=== PATIENT | male | born 1940 | race Caucasian/White ===

== ENCOUNTER 2020-08-15 11:08 | Outpatient (CLI) | payer MEDICARE, OTHER ==
[2020-08-15] MEDS ORDERED: GLUC1CAP40 PO (11:50)
[2020-08-15] MEDS ORDERED: ATOR20TA37 PO (11:50)
[2020-08-15] MEDS ORDERED: magnesium PO (11:50)
[2020-08-15] MEDS ORDERED: APIX5TAB PO (11:50)
[2020-08-15] MEDS ORDERED: LISI-170 PO (11:50)
[2020-08-15] MEDS ORDERED: ZOLP10TA PO (11:50)
[2020-08-15] MEDS ORDERED: TAMS-11 PO (11:50)
[2020-08-15] MEDS ORDERED: CALC-126 PO (11:50)
[2020-08-15] MEDS ORDERED: melatonin PO (11:50)
[2020-08-15] MEDS ORDERED: vitamin d PO (11:50)
[2020-08-15] MEDS ORDERED: zinc PO (11:50)
[2020-08-15] MEDS ORDERED: [UNRECOGNIZED DRUG - OTHER] PO (11:50)
[2020-08-15] MEDS ORDERED: LANS30CA PO (11:50)
[2020-08-15] MEDS ORDERED: VITA1TAB19 PO (11:50)
[2020-08-15] MEDS ORDERED: VIT1TABL32 PO (11:50)
[2020-08-15] MEDS ORDERED: MULT-658 PO (11:50)
[2020-08-15] MEDS ORDERED: TRAZ-175 PO (11:50)
[2020-08-15 12:07] LABS: BASOPHILS % (AUTO) 1 % (0-1); EOSINOPHILS % (AUTO) 1 % (1-7); LYMPHOCYTES % (AUTO) 18 % (22-44); MEAN CORPUSCULAR HEMOGLOBIN 29.8 pg (27.5-34.5); MEAN CORPUSCULAR HGB CONC 33.2 g/dL (33.2-36.2); MEAN PLATELET VOLUME 8.9 fL (7.4-10.4); MONOCYTES % (AUTO) 10 % (2-9); NEUTROPHILS % (AUTO) 72 % (42-75); PLATELET COUNT 172 x10^3/uL (130-400); RED BLOOD COUNT 5.04 x10^6/uL (4.38-5.82); RED CELL DISTRIBUTION WIDTH 14.3 % (9.4-14.8)
[2020-08-15 12:15] LABS: CHLORIDE 107 mmol/L (98-107); INTERNATIONAL NORMALIZED RATIO 1.04 (0.93-1.1); PROTHROMBIN TIME 11.1 Seconds (9.6-11.5)
[2020-08-15 12:23] LABS: ALANINE AMINOTRANSFERASE 22 U/L (12-78); ALBUMIN 3.9 g/dL (3.4-5.0); ALKALINE PHOSPHATASE 61 U/L (45-117); ANION GAP 5 mmol/L (5-15); BILIRUBIN,TOTAL 0.6 mg/dL (0.2-1.0); CALCIUM 9.2 mg/dL (8.5-10.1); CREATININE 1.19 mg/dL (0.7-1.3)
[2020-08-15 15:03] LABS: MICROSCOPIC NOT IND
== END 2020-08-15 23:59 | disposition home or self-care (01) ==
LOC: STAR 11:08
PROVIDERS: ATTEND Student in an Organized Health Care Education/Training Program
DX: Z01.818 Encounter for other preprocedural examination (principal); N40.1 Benign prostatic hyperplasia with lower urinary tract symptoms
CPT/HCPCS: 36415; 80053; 81003; 85025; 85610; 85730; 87077; 87086; 87186

== ENCOUNTER 2020-08-26 05:38 | Day surgery (SDC) | payer MEDICARE, OTHER ==
[~2020-08-26] VITALS: Ht 190.5 cm; Wt 95.6 kg
[~2020-08-26 05:38] MED LIST: APIX5TAB PO; ATOR20TA37 PO; CALC-126 PO; GLUC1CAP40 PO; LANS30CA PO; LISI-170 PO; MULT-658 PO; TAMS-11 PO; TRAZ-175 PO; VIT1TABL32 PO; VITA1TAB19 PO; ZOLP10TA PO; [UNRECOGNIZED DRUG - OTHER] PO; magnesium PO; melatonin PO; vitamin d PO; zinc PO
[2020-08-26 06:24] VITALS: BP 144/89
[2020-08-26] MEDS ORDERED: LACTATED RINGERS 1,000 ML IV SCH (06:30)
[2020-08-26] MEDS ORDERED: CHLORHEXIDINE 15 ML UDC PO ONE (06:30)
[2020-08-26] MEDS ORDERED: FENTANYL PF 250 MCG/5ML ONE (07:05)
[2020-08-26] MEDS ORDERED: DIPHENHYDRAMINE 50 MG/ML, 1ML IVPush PRN (07:30)
[2020-08-26] MEDS ORDERED: MEPERIDINE/PF 25MG/0.5ML IVPush PRN (07:30)
[2020-08-26] MEDS ORDERED: PROMETHAZINE 25 MG/ML, 1ML IVPush PRN (07:30)
[2020-08-26] MEDS ORDERED: hydrALAzine 20 MG/ML, 1ML IV PRN (07:30)
[2020-08-26] MEDS ORDERED: HALOPERIDOL 5 MG/ML IV PRN (07:30)
[2020-08-26] MEDS ORDERED: ACETAMINOPHEN 325 MG TABLET PO PRN (07:30)
[2020-08-26] MEDS ORDERED: OXYcodone 5 MG/5 ML ORAL.SOL UDC PO PRN (07:30)
[2020-08-26] MEDS ORDERED: HYDROmorphone 1 MG/ML, 1ML INJ IVPush PRN (07:30)
[2020-08-26] MEDS ORDERED: LABETALOL 5MG/ML, 20ML IV PRN (07:30)
[2020-08-26] MEDS ORDERED: PHENYLEPHRINE 10 MG/ML ONE (08:08)
[2020-08-26] MEDS ORDERED: EPHEDRINE 50 MG/ML, 1ML ONE (08:09)
[2020-08-26] MEDS ORDERED: ONDANSETRON 2MG/ML, 2ML ONE (08:09)
[2020-08-26] MEDS ORDERED: DEXAMETHASONE 4 MG/ML, 1ML ONE (08:09)
[2020-08-26] MEDS ORDERED: CEFAZOLIN 1,000 MG ONE (08:09)
[2020-08-26] MEDS ORDERED: PROPOFOL 10 MG/ML, 20ML ONE (08:09)
[2020-08-26] MEDS ORDERED: VASOPRESSIN 20 UNIT/ML, 1ML ONE ×2 (08:17→08:18)
[2020-08-26] MEDS ORDERED: FENTANYL PF 100 MCG/2ML ONE (11:19)
[2020-08-26] MEDS: FENTANYL PF 100 MCG/2ML IV PRN ×3 (11:21→11:35)
[2020-08-26] MEDS ORDERED: OXYcodone 5 MG/5 ML ORAL.SOL UDC ONE (11:27)
[2020-08-26] MEDS ORDERED: ACETAMINOPHEN 650 MG/20.3 ML UDC ONE (11:27)
== END 2020-08-26 14:25 | disposition home or self-care (01) ==
LOC: OUT 05:38
PROVIDERS: ATTEND Student in an Organized Health Care Education/Training Program
DX: N40.1 Benign prostatic hyperplasia with lower urinary tract symptoms (principal); R39.14 Feeling of incomplete bladder emptying; D49.4 Neoplasm of unspecified behavior of bladder; I10 Essential (primary) hypertension; E78.5 Hyperlipidemia, unspecified; I48.91 Unspecified atrial fibrillation; Z20.822 Contact with and (suspected) exposure to COVID-19; Z79.01 Long term (current) use of anticoagulants
CPT/HCPCS: 52204; 52648; 88300; 88305; J0690; J1100; J2370; J2405; J2704; J3010; J7120; U0003; U0005